=== PATIENT | female | born 1995 | race Caucasian/White ===

== ENCOUNTER 2023-04-05 13:51 | Emergency (ER) | payer OTHER, SELFPAY ==
--- NOTE | ~2023-04-05 | CT_ITS ---
EXAMINATION: CT abdomen pelvis wo con DATE: 04/05/2023 15:31 INDICATION: Right flank pain TECHNIQUE: Computed tomography (CT) of the abdomen and pelvis was performed without intravenous contr ast. Automated exposure control and iterative reconstruction technique were employed. The dose-length product was 1199.26 mGy-cm. COMPARISON: None FINDINGS: Lung bases are clear. Heart size is normal. No pericardial or pleural effusion. Liver, gallbladder, s pleen, pancreas and bilateral adrenal glands are normal. Kidneys and ureters are normal with no uroli thiasis, hydroureteronephrosis or perinephric/ureteral stranding. There is large amount of stool in t he proximal colon and feculent. Pseudofeces in the distal ileum which could be seen with constipation . No bowel obstruction. Normal appendix. A few small cysts/follicles at the left ovary. Bladder, uter us and right ovary are unremarkable. Minimal likely physiologic free fluid in the cul-de-sac. No path ologically enlarged abdominal or pelvic lymphadenopathy. Transitional thoracolumbar segment with hypo plastic right-sided riblet left-sided transverse process for purposes of this report will be dictated L1. There is also a transitional partially lumbarized S1 segment. Chronic appearing mild anterior we dging at T11 with mild thoracic spondylosis. IMPRESSION: 1. No urolithiasis. 2. Large amount of stool in the proximal colon with pseudofeces in the distal ileum which suggests po ssibility of constipation. No other acute intra-abdominal/pelvic process.. Reviewed, dictated and finalized at location A. IMPRESSION: 1. No urolithiasis. 2. Large amount of stool in the proximal colon with pseudofeces in the distal i leum which suggests possibility of constipation. No other acute intra-abdominal /pelvic process..
--- NOTE | ~2023-04-05 | US_ITS ---
EXAMINATION: US pelvic complete DATE: 04/05/2023 17:08 INDICATION: Left lower quadrant abdominal pain. TECHNIQUE: Multiple transabdominal and endovaginal sonographic images of the pelvis were obtained. COMPARISON: None. FINDINGS: The uterus measures 6.7 x 2.4 x 4.0 cm. The endometrial complex measures 5 mm in thickness. The righ t ovary measures 2.5 x 1.4 x 2.4 cm. The left ovary measures 3.3 x 1.9 x 2.4 cm. 1.5 cm anechoic cyst /follicle at the left ovary. Vascular flow identified in both ovaries on color Doppler. There is no f ree fluid in the pelvis. IMPRESSION: 1. Unremarkable pelvic ultrasound. Reviewed, dictated and finalized at location A.
[2023-04-05 14:07] VITALS: BP 132/89; PULSE 70; RESP 16; TEMP 36.8
--- NOTE | 2023-04-05 14:24 | ED.ABDPAIN ---
HPI - Abdominal Pain General Chief Complaint: Abdominal Pain Stated Complaint: abd pain Time Seen by Provider: 04/05/23 14:22 History of Present Illness HPI narrative: Patient is a 27-year-old female who presents to the emergency department this afternoon complaining of left-sided flank pain that started approximately 1 hour ago. Patient states that she was laying in bed getting ready to have a facial when the pain started. Pain was severe initially at 10 out of 10 and radiated to her left lower quadrant/inguinal region. Patient states that the pain has been intermittent and has now subsided. She denies any previous history of similar symptoms or any history of kidney stones. Patient also denies any history of ovarian cysts or any previous abdominal surgery. Patient denies any chest pain, shortness of breath, nausea, vomiting, abdominal pain, dysuria, hematuria, constipation, diarrhea, melena, hematochezia, fevers or chills. He also denies any headaches, dizziness, lightheadedness, blurry visions, dizziness, focal weakness, numbness and or tingling. There are no other modifying, alleviating, or precipitating factors at this time. Related Data Allergies Allergy/AdvReac Type Severity Reaction Status Date / Time No Known Allergies Allergy Verified 04/05/23 14:32 Review of Systems Review of Systems: All systems are reviewed and are negative unless stated otherwise in the HPI. Exam Narrative: General: Alert, awake, afebrile, in no acute distress. HEENT: PERRL, no rhinorrhea, no post nasal drip, oropharynx clear. Neck: Trachea midline, no JVD, no lymphadenopathy. Cardiovascular: Regular rate and rhythm, no murmurs, rubs or gallops, no peripheral edema. Respiratory: Clear to auscultation bilaterally, no tachypnea, no wheezing, no rhonchi, no rubs, no respiratory distress. Abdomen: Soft, nontender, nondistended, no rebound, no guarding, no peritoneal signs. Musculoskeletal: No joint swelling or deformity, normal muscle tone. Skin: No rashes or petechia, no signs of infection. Psychiatric: Alert and oriented, normal behavior and judgment for situation. Neurological: Alert and oriented to person, place, and time. Follows all commands. No focal deficits, speech is clear and fluent. Course Vital Signs Vital signs: Vital Signs Temperature 98.3 F 04/05/23 14:07 Pulse Rate 70 04/05/23 14:07 Respiratory Rate 16 04/05/23 14:07 Blood Pressure 132/89 04/05/23 14:07 Oxygen Delivery Room Air 04/05/23 14:07 Temperature 98.3 F 04/05/23 14:07 Pulse Rate 70 04/05/23 14:07 Respiratory Rate 16 04/05/23 14:07 Blood Pressure 132/89 04/05/23 14:07 Oxygen Delivery Room Air 04/05/23 14:07 MDM - Abdominal Pain MDM Narrative Medical decision making narrative: The patient was evaluated by myself in the emergency department. History is obtained from patient who is an independent historian and physical exam was performed. External medical records were reviewed at this time. IV was established and pertinent tests were ordered. Laboratory results obtained revealing no acute process. Urinalysis did reveal mild hematuria and patient was informed that this could likely be due to a kidney stone or having passed a stone. Imaging studies obtained included a CT abdomen pelvis without IV contrast which was independently interpreted by me revealing no acute process, which is pending final radiology interpretation. Given the left flank pain radiating to her left lower quadrant, pelvic ultrasound was obtained to rule out torsion. Ultrasound revealed no acute process. Patient was educated on the ovarian dual blood supply and differentials including ovarian torsion. Patient has remained completely asymptomatic since arrival to the emergency department and is currently denying any pain. She was informed that if she was to develop similar pain that she must return to the emergency department immediately. She was also instr
[2023-04-05 15:02] LABS: Basophils Absolute Auto 0.1 K/mm3 (0.0-0.1); Basophils Percent Auto 0.8 % (0.2-1.2); Eosinophils Absolute Auto 0.2 K/mm3 (0-0.3); Eosinophils Percent Auto 2.7 % (0-4.4); Hematocrit 44.7 % (37.0-47.0); Hemoglobin 14.1 g/dL (12.0-15.0); Immature Granulocyte Absolute 0.02 K/mm3 (0.00-0.031); Immature Granulocyte Percent A 0.3 % (0-0.5); Lymphocytes Absolute Auto 2.01 K/mm3 (0.9-3.2); Lymphocytes Percent Auto 26.7 % (18.3-44.2); Mean Corpuscular HGB Conc 31.5 g/dl (32-36); Mean Corpuscular Hemoglobin 27.2 pg (26-34); Mean Corpuscular Volume 86.3 fl (80-100); Mean Platelet Volume 10.2 fl (7.4-10.4); Monocytes Absolute Auto 0.5 K/mm3 (0.1-0.6); Neutrophils Absolute Auto 4.7 K/mm3 (1.3-6.7); Neutrophils Percent Auto 62.5 % (45.5-73.1); Platelet Count Result 260 k/mm3 (150-375); Red Blood Count 5.18 M/mm3 (4.2-5.4); White Blood Count 7.5 K/mm3 (4.5-10.0)
[2023-04-05 15:05] LABS: Appearance Urine Clear (Clear); Bacteria Urine None Seen /hpf; Bilirubin Urine Negative (Negative); Blood Urine 1+ (Negative); Color Urine Yellow (Yellow); Glucose Urine UA Negative (Negative); Ketones Urine Negative (Negative); Leukocyte Esterase Ur Negative LEU/UL (Negative); Nitrate Urine Negative (Negative); Non Pathogenic Casts 0-2; Protein Urine Negative (Negative); RBC Urine 21-50 /hpf (0-2); Squamous Epithelial Cell Urine None seen /hpf (Few); WBC Urine 0-5 /hpf
[2023-04-05 15:06] LABS: Add Urine Microscopic? YES
[2023-04-05 15:17] LABS: Alanine Aminotransferase 42 U/L (6-35); Albumin Level 4.5 g/dL (3.5-5.1); Alkaline Phosphatase 58 U/L (38-126); Anion Gap 9 mmol/L (8-16); Aspartate Amino Transferase 30 U/L (14-36); Bilirubin,Total 0.5 mg/dL (0.2-1.3); Blood Urea Nitrogen 13 mg/dL (7-17); Calcium 9.2 mg/dL (8.4-10.2); Carbon Dioxide 23 mmol/L (22-30); Chloride 105 mmol/L (98-107); Estimated CRCL calculation 94 ml/min; Estimated Glomerular Filt Rate > 60; Glucose 85 mg/dL (65-110); Lipase 138 U/L (23-300); Potassium 4.2 mmol/L (3.4-5.0); Sodium 137 mmol/L (137-145)
[2023-04-05 17:48] VITALS: PULSE 74; RESP 18; O2SAT 100
== END 2023-04-05 17:49 | disposition home or self-care (01) ==
PROVIDERS: Emergency Provider Emergency Medicine; PCP Internal Medicine
DX: R10.9 Unspecified abdominal pain (principal)
CPT/HCPCS: 36415; 74176; 76856; 80053; 81001; 81025; 82248; 83690; 85025; 99284